=== PATIENT | male | born 1960 | race Caucasian/White ===

== ENCOUNTER 2019-10-03 19:52 | Emergency (ER) | payer OTHER ==
[~2019-10-03] VITALS: Ht 160 cm; Wt 68.0 kg
[2019-10-03 19:55] VITALS: BP 149/101
== END 2019-10-03 20:47 | disposition left against medical advice (07) ==
LOC: ED 19:52
DX: Z53.21 Procedure and treatment not carried out due to patient leaving prior to being seen by health care provider (principal)